=== PATIENT | female | born 1975 | race Caucasian/White ===

== ENCOUNTER 2023-10-05 14:55 | Emergency (ER) | payer OTHER, SELFPAY ==
[2023-10-05 15:04] VITALS: BP 132/90
[2023-10-05] MEDS: TYLENOL 650 MG PO (15:10)
[2023-10-05] MEDS: ZOFRAN ODT (ORALLY DISINTEGRATING) 4 MG PO (15:12)
[2023-10-05 15:38] LABS: COVID-19 Antigen Negative (Negative)
--- NOTE | 2023-10-05 18:45 | ED.GENMED ---
History of Present Illness
General
Chief Complaint: Fever
Source: patient
Exam Limitations: none
Time Seen by Provider: 10/05/23 18:38
Nursing documentation reviewed up to this point in time: agreed with
Travel History
Have you had any contact with someone who has COVID-19?: No
Do you have any symptoms of coronavirus? Fever > 100 degrees, chills, cough, shortness of breath, sore throat, loss of taste or smell, muscle aches, or headache?: No
History of Present Illness
History of Present Illness:
pt is a 47 y/o F with h/o migraines
here with cough, mostly dry but sometimes productive with frequent vomiting becuase of e cough
and high fevers
pt last took tylenol this morning with zofran as well which she has been prescribed in the past for her migraines
she has had headache, bodyaches, but denies sore throat, diarrhea, abdominal pain, chest pain
pt did get the flu vaccine
her sister is also sick at home
Past History
Past History
ED Past Medical History: GERD, Psychiatric (Anxiety) and Other (Migraines, pneumonia)
ED Past Surgical History: Appendectomy, , Orthopedic ( Fractured toe) and Other (Epidurals)
Social History
Tobacco: Non-smoker
Alcohol: None
Drug: None
Personal:
Living: with family
Employment: Employed
Family History
Family History: Negative Early CAD
Review of Systems
Review of Systems
Allergies reviewed?: Yes
All Other Systems: Not applicable
Phy Exam
Physical Exam
Physical Exam:
GENERAL: Alert , nontoxic appearing
EYE: pupils equal and reactive
NECK: Supple
ENT: b/l TM s clear, pharynx erythematous but no tonsillar hypertrophy or exudates
CARDIAC: tachycardic, no edema
LUNGS: Clear breath sounds bilaterally, no acute respiratory distress, no wheezes/rales/rhonchi, occ cough
ABDOMEN: Soft, without focal tenderness, no r/g, no cvat, normal bowel sounds
NEUROLOGICAL: Alert and oriented, no focal neuro deficits
SKIN: Warm and dry, skin intact.
MUSCULOSKELETAL: No edema, well perfused.
PSYCH: Normal and appropriate interaction.
Course
Orders/Labs/Results
Orders:
Orders
10/05/23 15:07
Test Result ONCE
10/05/23 15:09
Acetaminophen [Tylenol] 650 mg .ROUTE .STK-MED ONE
Acetaminophen [Tylenol] 650 mg PO NOW STA
10/05/23 15:12
Ondansetron Orally Disint [Zofran Odt (Orally Disintegrating)] 4 mg .ROUTE .STK-MED ONE
Ondansetron Orally Disint [Zofran Odt (Orally Disintegrating)] 4 mg PO NOW STA
10/05/23 15:17
COVID-19 Antigen Urgent
Source: Nasal Swab
Influenza A+B Rapid Molecular Urgent
ANIKA Source: Nasal Swab
Specimen Description:
10/05/23 19:06
0.9% Sodium Chloride 1000 ml [Nss] 1,000 ml IV BOLUS
10/05/23 19:07
Test Result ONCE
CR Chest - 2 Views Urgent
Comment:
Reason For Exam: cough, vomiting
10/05/23 19:11
Ketorolac [Toradol] 30 mg IV NOW STA
10/05/23 19:45
Complete Blood Count/With Diff Urgent
Comprehensive Metabolic Panel Urgent
HCG, Serum Qualitative Screen Urgent
Lipase Urgent
10/05/23 20:40
0.9% Sodium Chloride 500 ml [Nss] 1,000 ml IV ONCE
Abnormal Lab Results
10/05/23
19:45
Absolute Lymphs (auto) 1.0 L 10^3/uL
(1.2-3.4)
Absolute Monos (auto) 0.9 H 10^3/uL
(0.1-0.6)
Lymphocytes % 16.4 L %
(20.5-51.1)
Monocytes % 15.4 H %
(1.7-9.3)
Sodium 134 L mmol/L
(135-145)
AST 81 H U/L
(14-36)
ALT 96 H U/L
(0-35)
Total Protein 8.6 H g/dl
(6.3-8.2)
Albumin 5.1 H g/dl
(3.5-5.0)
10/05/23 19:45
10/05/23 19:45
Vital Signs
Initial and Last Documented VS:
Initial Vital Signs
Temp Pulse Resp BP Pulse Ox
101 F H 113 18 132/90 100
10/05/23 15:04 10/05/23 15:04 10/05/23 15:04 10/05/23 15:04 10/05/23 15:04
Last Documented Vital Signs
Temp Pulse Resp BP Pulse Ox
99.1 F 80 17 102/66 99
10/05/23 22:51 10/05/23 22:51 10/05/23 22:51 10/05/23 22:51 10/05/23 22:51
MDM/Problems Addressed
Differential Diagnosis Includes:
INFLUENZA, VIRAL SYNDROME, VOIMTING, GASTRITIS
MDM/Problems Addressed:
47 y./o f with n/v, fever, cough x 3 days
she started msotly with cough and has had post tussive emesis
her cough is mostly dry
sh ehas not had any abdominal pain
had a little diarrhea today
took zofran at home today but was feling very weak and dehydrated
on exam she was febrile and nontoxic but appeared not well
abdomen nontneder
occ cough
lungs clear
mildly tachy expected with fever
labs reveal flu a+
normal wbc
lfts midly elevated
lipase normal
cxr indep reviewed by me neg for pna
pt feels better after ivf
will give one more liter of fluids
temp improved
*Critical Care Note
Total Time (30-74mins, 75-104mins- exclusive of procedures): Not Applicable
ED Attending Note
-
Portions of this chart may have been created with voice recognition software.� Occasional wrong word or��sound alike� substitutions may have occurred due to the inherent limitations of voice recognition software.
Discharge Plan
Departure
Patient Disposition: Home (Routine Discharge)
Date of Disposition: 10/05/23
Time of Disposition: 21:46
Patient with high blood pressure during this ER visit?: No
Condition: Fair
Covid-19: Not Applicable
Discharge Problem:
Influenza A, Vomiting
Instructions: Flu, Adult (DC)
Prescriptions:
No Action
fluticasone propionate 1 SPRAY spray,suspension
2 spray intranasal DAILY
loratadine 10 MG tablet
10 mg PO DAILY
multivitamin with folic acid [Tab-A-Davis] 1 TABLET tablet
1 tab PO DAILY
albuterol sulfate 2.5 MG/0.5 ML solution for nebulization
2.5 mg inhalation Q6HPRN PRN (Reason: wheezing) 10 Days Qty: 60 0RF
prednisone 50 MG tablet
50 mg PO DAILY Qty: 5 0RF
Referrals:
Anuradha Sparks, DO [Family Provider] - Follow up in 2-3 days
Stand Alone Forms: Return to Work
Activity Restrictions/Additional Instructions:
You tested positive for influenza A. You can use your Zofran every 6-8 hours as needed for nausea and vomiting and take Tylenol 3 times a day, ibuprofen 2 or 3 times a day for your fevers and aches. Eat a very bland diet, stick to liquids for now
assuming that you can tolerate those and you can advance your diet as tolerated. You could expect to feel ill for 5 to 7 days. Your chest x-ray showed no signs of pneumonia. Please return for any worsening symptoms like continued vomiting despite
Zofran, shortness of breath, lethargy, change in mental status, abdominal pain or any concerns
Interventions
Interventions:
*Risk Screen - Suicide Last Done: 10/05/23 15:04
*General Assessment Last Done: 10/05/23 15:04
*Neglect/Abuse Screening Last Done: 10/05/23 15:04
*ED COVID-19 Vaccine History Last Done: 10/05/23 15:04
*Nursing Disposition Last Done: 10/05/23 22:52
ED- Neurological Assessment Last Done: 10/05/23 19:35
ED-Skin Assessment Last Done: 10/05/23 19:35
Discharge Date and Time
Discharge Date/Time: 10/05/23 22:53
[2023-10-05] MEDS: NSS 1000 IV ×2 (19:44→20:40)
[2023-10-05] MEDS: TORADOL 30 MG IV (19:55)
[2023-10-05 19:59] LABS: % Basophils 0.3 % (0-2); % Eosinophils 2.6 % (0-6); % Immature Granulocytes 0.2 % (0-0.5); % Lymphocytes 16.4 % (20.5-51.1); % Monocytes 15.4 % (1.7-9.3); % Neutrophils 65.1 % (42.2-75.2); Absolute Eosinophils 0.2 10^3/uL (0-0.7); Absolute Monocytes 0.9 10^3/uL (0.1-0.6); Absolute Neutrophils 3.8 10^3/uL (1.4-6.5); Hematocrit 46.2 % (37.0-47.0); Mean Corp Hgb Conc. 34.6 g/dL (33.0-37.0); Mean Corpuscular Hgb 30.9 pg (27.0-31.0); Mean Corpuscular Volume 89.4 fL (81.0-99.0); Mean Platelet Volume 10.2 fL (7.4-10.4); Nucleated Red Blood Cells % 0 %; Platelet Count 184 10^3/uL (130-400); Red Blood Cell Count 5.17 10^6/uL (4.20-5.40); Red Cell Dist. Width 13.2 % (11.5-14.5); White Blood Cell Count 5.8 10^3/uL (4.8-10.8)
[2023-10-05 20:00] VITALS: BMI 31.7
[2023-10-05 20:13] LABS: HCG, Serum Qualitative Screen Negative
[2023-10-05 20:16] LABS: ALT (SGPT) 96 U/L (0-35); AST (SGOT) 81 U/L (14-36); Albumin 5.1 g/dl (3.5-5.0); Alkaline Phosphatase 101 U/L (38-126); Blood Urea Nitrogen 15 mg/dl (7-17); Calcium 9.7 mg/dl (8.4-10.2); Carbon Dioxide 22 mmol/L (22-30); Chloride 100 mmol/L (98-107); Estimated Creatinine Clearance 83 ml/min; Glucose 82 mg/dl (70-99); Lipase 117 U/L (23-300); Potassium 4.8 mmol/L (3.5-5.1); Sodium 134 mmol/L (135-145); Total Bilirubin 0.5 mg/dl (0.2-1.3); Total Protein 8.6 g/dl (6.3-8.2); eGFR > 60.00
[2023-10-05 20:41] VITALS: BP 100/64
[2023-10-05 22:51] VITALS: BP 102/66
== END 2023-10-05 22:53 | disposition home or self-care (01) ==
LOC: EMR 14:55
PROVIDERS: Emergency Medicine; Physician Assistant; EMERGENCY PHYSICIAN Emergency Medicine; FAMILY PHYSICIAN Family Medicine
DX: J10.89 Influenza due to other identified influenza virus with other manifestations (principal); R11.10 Vomiting, unspecified; Z11.52 Encounter for screening for COVID-19
CPT/HCPCS: 99284; 96374; 96361 ×3; 71046; 80053; 83690; 84703; 85025; 87502; 87811

== ENCOUNTER → 2023-11-28 17:57 | Outpatient (REF) | payer OTHER, SELFPAY | LOC: PAVMRI 17:57 | PROVIDERS: ATTENDING PHYSICIAN Pain Medicine Pain Medicine; FAMILY PHYSICIAN Family Medicine | DX: M43.26 Fusion of spine, lumbar region (principal); M48.062 Spinal stenosis, lumbar region with neurogenic claudication; M54.16 Radiculopathy, lumbar region | CPT/HCPCS: 72148 ==

== ENCOUNTER → 2024-02-13 07:15 | Outpatient (REF) | payer OTHER, SELFPAY | LOC: HWRCS 07:15 | PROVIDERS: ATTENDING PHYSICIAN Nurse Practitioner Gerontology; FAMILY PHYSICIAN Family Medicine | DX: R42 Dizziness and giddiness (principal) | CPT/HCPCS: 93306 ==

== ENCOUNTER → 2024-04-04 17:20 | Outpatient (REF) | payer OTHER, SELFPAY | LOC: MRI 17:20 | PROVIDERS: ATTENDING PHYSICIAN Physician Assistant Medical; FAMILY PHYSICIAN Family Medicine | DX: H81.8X9 Other disorders of vestibular function, unspecified ear (principal) | CPT/HCPCS: 70553; A9575 ==

== ENCOUNTER → 2024-05-20 16:02 | Outpatient (REF) | payer OTHER, SELFPAY | LOC: HWWDC 16:02 | PROVIDERS: ATTENDING PHYSICIAN Family Medicine; REFERRING PHYSICIAN Obstetrics & Gynecology | DX: Z12.31 Encounter for screening mammogram for malignant neoplasm of breast (principal) | CPT/HCPCS: 77063; 77067 ==

== ENCOUNTER → 2024-06-20 09:47 | Outpatient (REF) | payer OTHER, SELFPAY | LOC: HWRAD 09:47 | PROVIDERS: ATTENDING PHYSICIAN Internal Medicine Gastroenterology; FAMILY PHYSICIAN Family Medicine; REFERRING PHYSICIAN Physician Assistant | DX: R79.89 Other specified abnormal findings of blood chemistry (principal) | CPT/HCPCS: 76700 ==

== ENCOUNTER 2024-08-15 06:27 | Day surgery (SDC) | payer OTHER, SELFPAY | END 2024-08-15 14:53 | disposition home or self-care (01) | LOC: GI 06:27 | PROVIDERS: ATTENDING PHYSICIAN Internal Medicine Gastroenterology | DX: Z12.11 Encounter for screening for malignant neoplasm of colon (principal); Z80.0 Family history of malignant neoplasm of digestive organs; K62.1 Rectal polyp; K57.30 Diverticulosis of large intestine without perforation or abscess without bleeding; R13.10 Dysphagia, unspecified; K44.9 Diaphragmatic hernia without obstruction or gangrene; K22.89 Other specified disease of esophagus; K31.7 Polyp of stomach and duodenum; K31.89 Other diseases of stomach and duodenum; K21.00 Gastro-esophageal reflux disease with esophagitis, without bleeding | CPT/HCPCS: 45380; 43239; 88305; 88342 ==

== ENCOUNTER → 2025-01-02 13:04 | Outpatient (REF) | payer OTHER, SELFPAY | LOC: PAVMRI 13:04 | PROVIDERS: ATTENDING PHYSICIAN Physician Assistant Medical; FAMILY PHYSICIAN Family Medicine | DX: G43.909 Migraine, unspecified, not intractable, without status migrainosus (principal) | CPT/HCPCS: 70553; A9575 ==

== ENCOUNTER → 2025-06-12 12:47 | Outpatient (REF) | payer OTHER, SELFPAY | LOC: HWWDC 12:47 | PROVIDERS: ATTENDING PHYSICIAN Obstetrics & Gynecology; FAMILY PHYSICIAN Family Medicine | DX: Z12.31 Encounter for screening mammogram for malignant neoplasm of breast (principal) | CPT/HCPCS: 77063; 77067 ==